=== PATIENT | female | born 1955 | race Caucasian/White ===

== ENCOUNTER 2016-06-22 15:00 | Outpatient (CLI) | payer BC, OTHER ==
--- NOTE | 2016-06-22 15:33 | DIAGNOSTIC IMAGING REPORT ---
PROCEDURE: XR LUMBAR SPINE 5 VIEWS INDICATION: BACK PAIN TECHNIQUE: Five views. COMPARISON: None. FINDINGS: There is spondylosis of five S1 with disc space narrowing and irregularity. There is a large of posterior osteophytic ridge at this level as well. IMPRESSION: 1. Severe spondylosis L5-S1 with a large posterior osteophytic ridge.
== END 2016-06-22 23:00 ==
LOC: XR SRH 15:00
DX: M47.817 Spondylosis without myelopathy or radiculopathy, lumbosacral region (principal)

== ENCOUNTER 2016-06-26 13:38 | Outpatient (CLI) | payer BC, OTHER ==
--- NOTE | 2016-06-26 21:06 | DIAGNOSTIC IMAGING REPORT ---
PROCEDURE: MR LUMBAR SPINE W/O CONTRAST; FAILED EXAM INDICATION: PAIN FINDINGS: The patient was extremely claustrophobic and unable to undergo the examination. IMPRESSION: 1. Failed exam.
--- NOTE | 2016-06-26 21:06 | DIAGNOSTIC IMAGING REPORT ---
PROCEDURE: MR LUMBAR SPINE W/O CONTRAST; FAILED EXAM INDICATION: PAIN FINDINGS: The patient was extremely claustrophobic and unable to undergo the examination. IMPRESSION: 1. Failed exam.
== END 2016-06-26 23:00 | disposition home or self-care (01) ==
LOC: MRI SRH 13:38
DX: M54.5 Low back pain (principal); Z53.8 Procedure and treatment not carried out for other reasons

== ENCOUNTER 2016-08-31 08:59 | Emergency (ER) | payer BC, OTHER ==
--- NOTE | 2016-08-31 12:02 | DIAGNOSTIC IMAGING REPORT ---
PROCEDURE: CT ABD/PELVIS WITH CONTRAST CLINICAL INDICATION: ABDOMINAL PAIN TECHNIQUE: 125 ml of Isovue 300 were injected intravenously and axial images were obtained of the entire abdomen and pelvis with sagittal and coronal reformations. COMPARISON: None. FINDINGS: ABDOMEN: Lung bases are clear. Heart size is normal. Hepatic steatosis. Cholecystectomy. Splenectomy with a few small splenules. Pancreas, adrenal glands and right kidney are normal. Small left renal cyst. Normal abdominal aorta. Nonspecific bowel gas pattern. Bilateral ventral wall infiltration air collection suggestive of injection sites. PELVIS: Normal appendix. Mild sigmoid diverticulosis. Uterine atrophy. Normal adnexa and bladder. No inflammatory changes or free fluid. Severe L5-S1 degenerative changes. IMPRESSION: 1. Hepatic steatosis 2. Cholecystectomy and splenectomy 3. Mild sigmoid diverticulosis 4. Bilateral antral injection sites 5. Results discussed with Dr. Block All CT scans at this facility use dose modulation, iterative reconstruction, and/or weight-based dosing when appropriate to reduce radiation dose to as low as reasonably achievable.
--- NOTE | 2016-08-31 13:27 | ED ORDER SUMMARY ---
..... Patient: MADIE ADAMS OrderSheet [facility] VisitID: [id number] [address] [place] [address] 61y, F Registration Date/Time: 08/31/2016 ORDER SHEET Weight: 92.0 kg (stated) Allergies: Avelox, Metal GENERAL ORDERS: UA-Culture if indicated Urgent (09:45 08/31/2016 Maksim Rivera) (Ack 9:48 KHoerner) (10:00 MWinterer R.N.) Cardiac Panel Stat (:08/31/2016 Maksim Rivera) (Ack 9:48 ELIDAoerner) (10:00 MWinterer R.N.) D-Dimer Urgent (:08/31/2016 Maksim Rivera) (Ack 9:48 ELIDAoerner) (10:00 MWinterer R.N.) Amylase Urgent (09:08/31/2016 Maksim Rivera) (Ack 9:48 ELIDAoerner) (10:00 MWinterer R.N.) Lipase Urgent (09:45 08/31/2016 Maksim Rivera) (Ack 9:48 ELIDAoerner) (10:00 MWinterer R.N.) EKG - ER Stat (09:45 08/31/2016 Maksim Rivera) (9:47 LNations ER Tech1) PT with INR Urgent (10:41 08/31/2016 Maksim Rivera) (10:43 KHoerner) PTT Urgent (10:41 08/31/2016 Maksim Rivera) (10:43 KHoerner) CT Abd/Pel w Cont (No) (10/0.9) Urgent (11:07 08/31/2016 Maksim Rivera) (Ack 11:11 ELIDAoerner) (11:41 Ferne R.N.) MEDICATION ORDERS: IV FLUIDS: IV NS : initial bolus none -, then 1000 mL/hr for X1 (NOW) (09:44 08/31/2016 Maksim Rivera) (Ack 10:00 MWinterer R.N.) (10:12 MWinterer R.N.) Zofran IV 4 mg (NOW) (09:45 08/31/2016 Maksim Rivera) (Ack 10:00 MWinterer R.N.) (10:12 MWinterer R.N.) Famotidine IV 20 mg/50mL (NOW) (10:13 08/31/2016 MWinterer R.N. verbal order read back to Maksim Rivera) (Ack 10:14 MWinterer R.N.) (10:19 MWinterer R.N.) Zofran IV 4 mg (NOW) (13:25 08/31/2016 Maksim Rivera) (Ack 13:27 JBoardley R.N.) (13:29 JBoardley R.N.) ORDER SHEET NOTES: [Electronically signed by Aiyana Sylvester R.N. (15:45 08/31/2016)] [Electronically signed by Shayan Block Dr. (21:44 08/31/2016)] [Electronically locked/signed by Aiyana Sylvester R.N. (15:45 08/31/2016)]
--- NOTE | 2016-08-31 13:27 | ED CLINICAL REPORT ---
Clinical Report - Physicians/Mid Levels [facility] [address] [place] [address] 08/31/2016 9:02 Patient: MADIE ADAMS Time Seen: 09:21; initial patient contact. Arrived- By private vehicle. Historian- patient. HISTORY OF PRESENT ILLNESS Chief Complaint: ABDOMINAL PAIN. At its maximum, severity described as moderate. When seen in the E.D., severity described as moderate. No radiation. It is described as located in the epigastric area. This started today and is still present. It was gradual in onset and has been constant. The patient has had nausea and vomiting. No loss of appetite or diarrhea. (Pt has a Cx Leukocytosis, in the 14k range, but will jump up to 19-20k.). Similar symptoms previously: None. Recent medical care: Not recently seen/assessed. REVIEW OF SYSTEMS No constipation, black stools, hematemesis, bloody stools or fever. No chest pain, difficulty breathing or chills. All systems otherwise negative, except as recorded above. PAST HISTORY Thyroid Disease. Hypertension. Herniated Disk. Back Pain. SURGERIES: . Hysterectomy. Splenectomy. Thyroid Surgery. SOCIAL HISTORY Never smoker. Occasional alcohol use. No drug use. ADDITIONAL NOTES The nursing notes have been reviewed. PHYSICAL EXAM Vital Signs: 08/31/2016 09:11 BP: 167/97. HR: 80. RR: 18. O2 saturation: 100%. Temp: 98 F. Pain level now: 7/10. Have been reviewed. Hypertensive. Heart rate normal. Respiratory rate normal. Temperature normal. Oxygen saturation normal. Appearance: Alert. Oriented X3. No acute distress. Eyes: Eyes normal inspection. No scleral icterus or pale conjunctivae. ENT: Pharynx normal. CVS: Normal heart rate and rhythm. Heart sounds normal. Respiratory: No respiratory distress. Breath sounds normal. Abdomen: Soft. Mild tenderness in the epigastric area. No guarding, rebound tenderness or Kaur's sign present. Bowel sounds normal. No organomegaly. No mass. Back: Normal inspection. No CVA tenderness. Rectal: Rectal exam normal and nontender. Stool heme negative; hemoccult quality control engineering technician check passed. (POC test reference range: negative). (Femal JOY Sylvester present for exam.). Skin: Skin warm and dry. Normal skin color. No rash. Extremities: No lower extremity edema. Neuro: Oriented X 3. LABS, X-RAYS, AND EKG EKG: EKG time: (0955). No acute process. No acute ischemia. Normal EKG. Normal sinus rhythm. Rate: 73. Normal P waves. Normal DOT. Normal QRS complex. Normal axis. Normal ST and T waves, QT and QTc. Prior EKG unavailable. The study has been interpreted contemporaneously by me. The study has been independently viewed by me. The EKG appears to be a good tracing. Interpretation time: 954. Abdominal CT: 1. Hepatic steatosis 2. Cholecystectomy and splenectomy 3. Mild sigmoid diverticulosis 4. Bilateral antral injection sites. Study type: abdomen and pelvis. Abdominal CT performed with IV contrast. The study was interpreted by the radiologist and discussed with the radiologist. Laboratory Tests: UA-Culture if indicated: (APRIL: 08/31/2016 09:30) ( MsgRcvd 08/31/2016 10:34) Final results Test Result Flag Units (Reference) URINE COLOR YELLOW URINE APPEARANCE CLEAR URINE GLUCOSE NEGATIVE (NEGATIVE) URINE BILIRUBIN 1+ (NEGATIVE) URINE BILIRUBIN ICTOTEST NEGATIVE (NEGATIVE) URINE KETONE TRACE (NEGATIVE) URINE SPECIFIC GRAVITY 1.020 (1.010-1.030) URINE PH 6.0 (5.0-8.0) URINE PROTEIN 1+ (NEGATIVE) URINE UROBILINOGEN 1.0 EU/dL (0.2-1.0) URINE NITRITE NEGATIVE (NEGATIVE) URINE BLOOD NEGATIVE (NEGATIVE) URINE LEUK ESTERASE NEGATIVE (NEGATIVE) URINE RBC 0-1 rbc/hpf (0-1) URINE WBC 0-1 wbc/hpf (0-1) URINE EPITHELIAL CELLS 1-3 EPI/hpf (0-5) URINE BACTERIA NONE SEEN (NONE SEEN) URINE COMMENT CULT NOT INDICATED URINE CULTURES ARE SET-UP BASED ON THE FOLLOWING CRITERIA:POSITIVE NITRITEPOSITIVE LEUKOCYTE ESTERASEGREATER THAN 10 WHITE BLOOD CELLSMODERATE (2+) OR GREATER BACTERIA CBC w Diff: (APRIL: 08/31/2016 09:30) ( MsgRcvd 08/31/2016 10:07) IP Test Result Flag Units (Reference) WHITE BLOOD COUNT 19.1 H K/uL (4.5-11.5) RED BLOOD COUNT 4.52 M/uL (4.00-5.20) HEMOGLOBIN 15.4 gm/dL (12.0-16.0) HEMATOCRIT 43.2 % (36.0-46.0) MEAN CELL VOLUME 95 fL (80-100) MEAN CORPUSCULAR HGB 34 pg (26-34) MEAN CORPUSCULAR HGB CONC 36 g/dL (31-37) RED CELL DISTRIBUTION WIDTH 14.2 % (11.6-14.8) NEUTROPHIL % 57.5 % (50-75) LYMPH % 31.2 % (25-40) MONO % 8.1 % (3-14) EOSINOPHIL % 1.1 % (0-4) BASOPHIL % 2.1 H % (0-2) [id number]: (APRIL: 08/31/2016 09:30) ( [facility] 08/31/2016 10:24) Final results Test Result Flag Units (Reference) D-DIMER QUANTITATIVE < 0.27 L ug/mLFEU (0.27-0.52) The primary value of this quantitative assay relates toits negative predictive value (i.e. exclusion) of pulmonaryembolism/deep vein thrombosis/DIC.Elevated levels of d-dimer may also occur with:, age, cancer, inflammation, liver disease,post-op, infection, hematoma, coronary disease, peripheralarteriopathy, bleeding disorders and thrombolytic treatment.Results should be correlated with other clinical andradiological data.Testing Methodology: Latex Immunoassay Lipase: (APRIL: 08/31/2016 09:45) ( [facility] 08/31/2016 10:19) Final results Test Result Flag Units (Reference) LIPASE 153 U/L (73-393) AMYLASE 38 U/L (25-115) CHEM 13 PANEL: (APRIL: 08/31/2016 09:30) ( [facility] 08/31/2016 10:18) Final results Test Result Flag Units (Reference) GLUCOSE 127 H mg/dL (70-110) BUN 10 mg/dL (7-18) CREATININE 0.9 mg/dL (0.6-1.3) Estimated GFR >60 mL/min Estimated GFR- >60 mL/min Note: Persistent reduction over 3 months in eGFR<60 mL/min/1.73 m2 defines CKD. Patients with eGFR values>=60 mL/min/1.73 m2 may also have CKD if evidence ofpersistent proteinuria. Additional information may be foundat [email or web address].org. SODIUM 139 mmol/L (136-145) POTASSIUM 3.7 mmol/L (3.5-5.1) CHLORIDE 101 mmol/L (98-107) CARBON DIOXIDE 23 mmol/L (21-32) CALCIUM 9.6 mg/dL (8.5-10.1) TOTAL PROTEIN 8.4 H g/dL (6.4-8.2) ALBUMIN 3.7 g/dL (3.3-5.0) BILIRUBIN, TOTAL 1.0 mg/dL (0.0-1.0) ALKALINE PHOSPHATASE 132 H U/L (46-116) AST (SGOT) 48 H U/L (15-37) ALT (SGPT) 67 U/L (12-78) CPK 43 U/L (24-260) MAGNESIUM 1.9 mg/dL (1.8-2.4) TROPONIN I <0.05 L ng/mL (0.00-1.5) TROPONIN REFERENCE RANGE:<0.1 NEGATIVE0.1-1.5 INDETERMINANT>1.5 POSITIVE . PROGRESS AND PROCEDURES Course of Care: Famotidine 20 mg IVP given. Physical exam findings are improved. Symptoms better. Disposition: Discharged home in good and improved condition. Condition: good. CLINICAL IMPRESSION Acute gastritis. No alcoholic gastritis or hemorrhagic gastritis. Mild leukocytosis. No bandemia. INSTRUCTIONS Your Current Medications: CONTINUE TAKING THE FOLLOWING MEDICATIONS: Ambien Oral. Citalopram Hydrobromide Oral. Folic Acid Oral. Hydrochlorothiazide Oral. Levothyroxine Sodium Oral. Ranitidine HCl Oral. Vitamin D Oral. Zofran Oral. Prescription Medications: Zofran (orally disintegrating tablets) 4 mg: take 1 orally every 6 hours. Dispense ten (10). No refill. Substitution is permissible. Zantac 150 mg: take 1 orally every 12 hours. Dispense sixty (60). No refills. Substitution is permissible. Protonix 40 mg tablets: take 1 tablet orally every day. Dispense twenty-eight (28). No refill. Substitution is permissible. Follow-up: Follow up with your doctor tomorrow. Call for an appointment. Follow up with doctor Call your surgeon today to determine if they want to proceed with surgery. Blood pressure screening was not performed during this visit because the patient has an active diagnosis of hypertension. (Electronically signed by Shayan Block Dr. 08/31/2016 21:44)
--- NOTE | 2016-08-31 13:27 | ED CLINICAL REPORT ---
Clinical Report - Physicians/Mid Levels [facility] [address] [place] [address] 08/31/2016 9:02 Patient: MADIE ADAMS Time Seen: 09:21; initial patient contact. Arrived- By private vehicle. Historian- patient. HISTORY OF PRESENT ILLNESS Chief Complaint: ABDOMINAL PAIN. At its maximum, severity described as moderate. When seen in the E.D., severity described as moderate. No radiation. It is described as located in the epigastric area. This started today and is still present. It was gradual in onset and has been constant. The patient has had nausea and vomiting. No loss of appetite or diarrhea. (Pt has a Cx Leukocytosis, in the 14k range, but will jump up to 19-20k.). Similar symptoms previously: None. Recent medical care: Not recently seen/assessed. REVIEW OF SYSTEMS No constipation, black stools, hematemesis, bloody stools or fever. No chest pain, difficulty breathing or chills. All systems otherwise negative, except as recorded above. PAST HISTORY Thyroid Disease. Hypertension. Herniated Disk. Back Pain. SURGERIES: . Hysterectomy. Splenectomy. Thyroid Surgery. SOCIAL HISTORY Never smoker. Occasional alcohol use. No drug use. ADDITIONAL NOTES The nursing notes have been reviewed. PHYSICAL EXAM Vital Signs: 08/31/2016 09:11 BP: 167/97. HR: 80. RR: 18. O2 saturation: 100%. Temp: 98 F. Pain level now: 7/10. Have been reviewed. Hypertensive. Heart rate normal. Respiratory rate normal. Temperature normal. Oxygen saturation normal. Appearance: Alert. Oriented X3. No acute distress. Eyes: Eyes normal inspection. No scleral icterus or pale conjunctivae. ENT: Pharynx normal. CVS: Normal heart rate and rhythm. Heart sounds normal. Respiratory: No respiratory distress. Breath sounds normal. Abdomen: Soft. Mild tenderness in the epigastric area. No guarding, rebound tenderness or Kaur's sign present. Bowel sounds normal. No organomegaly. No mass. Back: Normal inspection. No CVA tenderness. Rectal: Rectal exam normal and nontender. Stool heme negative; hemoccult director supplier quality check passed. (POC test reference range: negative). (Femal JOY Sylvester present for exam.). Skin: Skin warm and dry. Normal skin color. No rash. Extremities: No lower extremity edema. Neuro: Oriented X 3. LABS, X-RAYS, AND EKG EKG: EKG time: (0955). No acute process. No acute ischemia. Normal EKG. Normal sinus rhythm. Rate: 73. Normal P waves. Normal DOT. Normal QRS complex. Normal axis. Normal ST and T waves, QT and QTc. Prior EKG unavailable. The study has been interpreted contemporaneously by me. The study has been independently viewed by me. The EKG appears to be a good tracing. Interpretation time: 954. Abdominal CT: 1. Hepatic steatosis 2. Cholecystectomy and splenectomy 3. Mild sigmoid diverticulosis 4. Bilateral antral injection sites. Study type: abdomen and pelvis. Abdominal CT performed with IV contrast. The study was interpreted by the radiologist and discussed with the radiologist. Laboratory Tests: UA-Culture if indicated: (APRIL: 08/31/2016 09:30) ( MsgRcvd 08/31/2016 10:34) Final results Test Result Flag Units (Reference) URINE COLOR YELLOW URINE APPEARANCE CLEAR URINE GLUCOSE NEGATIVE (NEGATIVE) URINE BILIRUBIN 1+ (NEGATIVE) URINE BILIRUBIN ICTOTEST NEGATIVE (NEGATIVE) URINE KETONE TRACE (NEGATIVE) URINE SPECIFIC GRAVITY 1.020 (1.010-1.030) URINE PH 6.0 (5.0-8.0) URINE PROTEIN 1+ (NEGATIVE) URINE UROBILINOGEN 1.0 EU/dL (0.2-1.0) URINE NITRITE NEGATIVE (NEGATIVE) URINE BLOOD NEGATIVE (NEGATIVE) URINE LEUK ESTERASE NEGATIVE (NEGATIVE) URINE RBC 0-1 rbc/hpf (0-1) URINE WBC 0-1 wbc/hpf (0-1) URINE EPITHELIAL CELLS 1-3 EPI/hpf (0-5) URINE BACTERIA NONE SEEN (NONE SEEN) URINE COMMENT CULT NOT INDICATED URINE CULTURES ARE SET-UP BASED ON THE FOLLOWING CRITERIA:POSITIVE NITRITEPOSITIVE LEUKOCYTE ESTERASEGREATER THAN 10 WHITE BLOOD CELLSMODERATE (2+) OR GREATER BACTERIA CBC w Diff: (APRIL: 08/31/2016 09:30) ( MsgRcvd 08/31/2016 10:07) IP Test Result Flag Units (Reference) WHITE BLOOD COUNT 19.1 H K/uL (4.5-11.5) RED BLOOD COUNT 4.52 M/uL (4.00-5.20) HEMOGLOBIN 15.4 gm/dL (12.0-16.0) HEMATOCRIT 43.2 % (36.0-46.0) MEAN CELL VOLUME 95 fL (80-100) MEAN CORPUSCULAR HGB 34 pg (26-34) MEAN CORPUSCULAR HGB CONC 36 g/dL (31-37) RED CELL DISTRIBUTION WIDTH 14.2 % (11.6-14.8) NEUTROPHIL % 57.5 % (50-75) LYMPH % 31.2 % (25-40) MONO % 8.1 % (3-14) EOSINOPHIL % 1.1 % (0-4) BASOPHIL % 2.1 H % (0-2) [id number]: (APRIL: 08/31/2016 09:30) ( [facility] 08/31/2016 10:24) Final results Test Result Flag Units (Reference) D-DIMER QUANTITATIVE < 0.27 L ug/mLFEU (0.27-0.52) The primary value of this quantitative assay relates toits negative predictive value (i.e. exclusion) of pulmonaryembolism/deep vein thrombosis/DIC.Elevated levels of d-dimer may also occur with:, age, cancer, inflammation, liver disease,post-op, infection, hematoma, coronary disease, peripheralarteriopathy, bleeding disorders and thrombolytic treatment.Results should be correlated with other clinical andradiological data.Testing Methodology: Latex Immunoassay Lipase: (APRIL: 08/31/2016 09:45) ( [facility] 08/31/2016 10:19) Final results Test Result Flag Units (Reference) LIPASE 153 U/L (73-393) AMYLASE 38 U/L (25-115) CHEM 13 PANEL: (APRIL: 08/31/2016 09:30) ( [facility] 08/31/2016 10:18) Final results Test Result Flag Units (Reference) GLUCOSE 127 H mg/dL (70-110) BUN 10 mg/dL (7-18) CREATININE 0.9 mg/dL (0.6-1.3) Estimated GFR >60 mL/min Estimated GFR- >60 mL/min Note: Persistent reduction over 3 months in eGFR<60 mL/min/1.73 m2 defines CKD. Patients with eGFR values>=60 mL/min/1.73 m2 may also have CKD if evidence ofpersistent proteinuria. Additional information may be foundat [email or web address].org. SODIUM 139 mmol/L (136-145) POTASSIUM 3.7 mmol/L (3.5-5.1) CHLORIDE 101 mmol/L (98-107) CARBON DIOXIDE 23 mmol/L (21-32) CALCIUM 9.6 mg/dL (8.5-10.1) TOTAL PROTEIN 8.4 H g/dL (6.4-8.2) ALBUMIN 3.7 g/dL (3.3-5.0) BILIRUBIN, TOTAL 1.0 mg/dL (0.0-1.0) ALKALINE PHOSPHATASE 132 H U/L (46-116) AST (SGOT) 48 H U/L (15-37) ALT (SGPT) 67 U/L (12-78) CPK 43 U/L (24-260) MAGNESIUM 1.9 mg/dL (1.8-2.4) TROPONIN I <0.05 L ng/mL (0.00-1.5) TROPONIN REFERENCE RANGE:<0.1 NEGATIVE0.1-1.5 INDETERMINANT>1.5 POSITIVE . PROGRESS AND PROCEDURES Course of Care: Famotidine 20 mg IVP given. Physical exam findings are improved. Symptoms better. Disposition: Discharged home in good and improved condition. Condition: good. CLINICAL IMPRESSION Acute gastritis. No alcoholic gastritis or hemorrhagic gastritis. Mild leukocytosis. No bandemia. INSTRUCTIONS Your Current Medications: CONTINUE TAKING THE FOLLOWING MEDICATIONS: Ambien Oral. Citalopram Hydrobromide Oral. Folic Acid Oral. Hydrochlorothiazide Oral. Levothyroxine Sodium Oral. Ranitidine HCl Oral. Vitamin D Oral. Zofran Oral. Prescription Medications: Zofran (orally disintegrating tablets) 4 mg: take 1 orally every 6 hours. Dispense ten (10). No refill. Substitution is permissible. Zantac 150 mg: take 1 orally every 12 hours. Dispense sixty (60). No refills. Substitution is permissible. Protonix 40 mg tablets: take 1 tablet orally every day. Dispense twenty-eight (28). No refill. Substitution is permissible. Follow-up: Follow up with your doctor tomorrow. Call for an appointment. Follow up with doctor Call your surgeon today to determine if they want to proceed with surgery. Blood pressure screening was not performed during this visit because the patient has an active diagnosis of hypertension. (Electronically signed by Shayan Block Dr. 08/31/2016 21:44)
--- NOTE | 2016-08-31 13:27 | ED ORDER SUMMARY ---
..... Patient: MADIE ADAMS OrderSheet [facility] VisitID: [id number] [address] [place] [address] 61y, F Registration Date/Time: 08/31/2016 ORDER SHEET Weight: 92.0 kg (stated) Allergies: Avelox, Metal GENERAL ORDERS: UA-Culture if indicated Urgent (09:45 08/31/2016 Maksim Rivera) (Ack 9:48 KHoerner) (10:00 MWinterer R.N.) Cardiac Panel Stat (:08/31/2016 Maksim Rivera) (Ack 9:48 ELIDAoerner) (10:00 MWinterer R.N.) D-Dimer Urgent (:08/31/2016 Maksim Rivera) (Ack 9:48 ELIDAoerner) (10:00 MWinterer R.N.) Amylase Urgent (09:08/31/2016 Maksim Rivera) (Ack 9:48 ELIDAoerner) (10:00 MWinterer R.N.) Lipase Urgent (09:45 08/31/2016 Maksim Rivera) (Ack 9:48 ELIDAoerner) (10:00 MWinterer R.N.) EKG - ER Stat (09:45 08/31/2016 Maksim Rivera) (9:47 LNations ER Tech1) PT with INR Urgent (10:41 08/31/2016 Maksim Rivera) (10:43 KHoerner) PTT Urgent (10:41 08/31/2016 Maksim Rivera) (10:43 KHoerner) CT Abd/Pel w Cont (No) (10/0.9) Urgent (11:07 08/31/2016 Maksim Rivera) (Ack 11:11 ELIDAoerner) (11:41 Ferne R.N.) MEDICATION ORDERS: IV FLUIDS: IV NS : initial bolus none -, then 1000 mL/hr for X1 (NOW) (09:44 08/31/2016 Maksim Rivera) (Ack 10:00 MWinterer R.N.) (10:12 MWinterer R.N.) Zofran IV 4 mg (NOW) (09:45 08/31/2016 Maksim Rivera) (Ack 10:00 MWinterer R.N.) (10:12 MWinterer R.N.) Famotidine IV 20 mg/50mL (NOW) (10:13 08/31/2016 MWinterer R.N. verbal order read back to Maksim Rivera) (Ack 10:14 MWinterer R.N.) (10:19 MWinterer R.N.) Zofran IV 4 mg (NOW) (13:25 08/31/2016 Maksim Rivera) (Ack 13:27 JBoardley R.N.) (13:29 JBoardley R.N.) ORDER SHEET NOTES: [Electronically signed by Aiyana Sylvester R.N. (15:45 08/31/2016)] [Electronically signed by Shayan Block Dr. (21:44 08/31/2016)] [Electronically locked/signed by Aiyana Sylvester R.N. (15:45 08/31/2016)]
--- NOTE | 2016-08-31 13:27 | ED NURSING NOTES ---
Clinical Report - Nurses [facility] [address] [place] [address] 08/31/2016 9:02 Patient: MADIE ADAMS TRIAGE Acuity: LEVEL 3. Chief Complaint: ABDOMINAL PAIN and VOMITING. Alert. No acute distress. SEPSIS SCREEN: Sepsis Screen. Negative (no infection suspected/documented). --09:22 Aiyana Sylvester R.N. 09:11 08/31/16. BP: 167/97. HR: 80. RR: 18. O2 saturation: 100%. Temp: 98 F (oral). Pain level now: 11/15. --09:22 Aiyana Sylvester R.N. Weight: 92 kg stated. Height/Length: 65 inches Per Patient. BMI: 33.8. --09:22 Aiyana Sylvester R.N. Medications Levothyroxine Sodium Oral. --09:14 Aiyana Sylvester R.N. Hydrochlorothiazide Oral. --09:14 Aiyana Sylvester R.N. Folic Acid Oral. --09:14 Aiyana Sylvester R.N. Citalopram Hydrobromide Oral. --09:15 Aiyana Sylvester R.N. Ambien Oral. --09:15 Aiyana Sylvester R.N. Ranitidine HCl Oral. --09:15 Aiyana Sylvester R.N. Vitamin D Oral. --09:15 Aiyana Sylvester R.N. Zofran Oral. --09:16 Aiyana Sylvester R.N. Medication/allergy information source: the patient. --09:22 Aiyana Sylvester R.N. Allergies Avelox. --09:16 Aiyana Sylvester R.N. Metal. --09:16 Aiyana Sylvester R.N. History Arrived by private vehicle. Historian: patient. Accompanied by spouse. Primary physician (Dale). Onset. (4 days ago). ( Pt reports she is having back surgery tomorrow and her Doctor took her off coumadin 9 days ago and she started enoxaparin injections 4 days ago and has felt sick since.). Treatment [employer]IAN: None. PAST MEDICAL HX: The patient has had a hysterectomy. SOCIAL HX: Never smoker. Occasional alcohol use. No drug use. FALL RISK ASSESSMENT: Fall risk assessment completed. No fall risk identified. NUTRITIONAL RISK ASSESSMENT: The nutritional risk assessment revealed no deficiencies. FUNCTIONAL ASSESSMENT: Functional assessment: no impairments noted. LEARNING NEEDS ASSESSMENT: The learning needs assessment revealed no barriers. SKIN INTEGRITY ASSESSMENT: Skin integrity risk assessment completed. No skin integrity risk identified. --09: Aiyana Sylvester R.N. PROBLEMS: Thyroid Disease. Hypertension. Herniated Disk. Back Pain. --: Aiyana Sylvester R.N. ADDITIONAL SURGERIES: . Hysterectomy. Splenectomy. Thyroid Surgery. --: Aiyana Sylvester R.N. Assessment GENERAL / NEURO / PSYCH: Alert. Oriented X 4. Appears in no acute distress. Patient appears calm and cooperative. RESPIRATORY: Respirations not labored. CVS: Capillary refill less than 2 seconds. GI / : Abdomen soft and nontender. SKIN: Mucous membranes are pink. Skin is warm and dry. --: Aiyana Sylvester R.N. Interventions ID band on patient. To treatment room. --: Aiyana Sylvester R.N. PHYSICAL ASSESSMENT 09:08/31/16. To room via wheelchair. GENERAL / NEURO / PSYCH: Alert. Oriented X 4. Appears in no acute distress. HEENT: Mucous membranes are pink. RESPIRATORY: Respirations not labored. CVS: Capillary refill less than 2 seconds. GI / : Abdomen soft and nontender. SKIN: Skin is warm and dry. --09:22 Aiyana Sylvester R.N. NURSING PROGRESS NOTES 09:12 08/31/2016 Site #1 started via IV in the left antecubital space with an 20g angiocath, with aseptic technique and good blood return; one attempt. Blood drawn: rainbow set. Labeled in the presence of the patient and sent to the lab. Saline lock flushed with 10 mL saline. --10:12 Aiyana Sylvester R.N. 09:08/31/16. Patient gowned. Two patient identifiers checked. Call light placed in reach. Side rails up x 1. Bed placed in lowest position. Brakes of bed on. Patient ready for evaluation- chart flagged and ED physician notified. --09:22 Aiyana Sylvester R.N. EKG time: (954). EKG was ordered, performed by a tech and shown to the ED physician. --09:55 Latanya Best, ANTHONY Tech1 10:02 08/31/2016 Zofran (Ondansetron HCl) IVP 4 mg given over 1 minute(s) via site #1. Allergies verified and confirmed 5 rights. IV patency established. IV site checked: no pain, redness, or swelling. IV flushed thoroughly pre- and post-medication administration. IVP given by RN. --10:12 Aiyana Sylvester R.N. 10:12 08/31/2016 Started bag #1 1000 mL IV Fluids IV NS (Saline); at 1000 mL/hr over 1 hour(s) via site #1. Allergies verified and confirmed 5 rights. IV patency established. IV site checked: no pain, redness, or swelling. IV flushed thoroughly pre- and post-medication administration. --10:12 Aiyana Sylvester R.N. 10:19 08/31/2016 Started 20 mg of Famotidine IVPB in bag #1 50 mL; at 150 mL/hr over 30 minute(s) via site #1 via IV pump. Allergies verified and confirmed 5 rights. IV patency established. IV site checked: no pain, redness, or swelling. IV flushed thoroughly pre- and post-medication administration. --10:19 Aiyana Sylvester R.N. 11:06 08/31/2016 Famotidine IVPB Discontinued. Total amount infused: 50 mL. IV patency established. IV site checked: no pain, redness, or swelling. IV flushed thoroughly. --11:31 Rock Salazar R.N. 12:17 08/31/16. BP: 146/81. HR: 75. RR: 18. O2 saturation: 99% on room air. Temp: 98.5 F (oral). --12:18 Aiyana Sylvester R.N. 11:30 08/31/2016 IV Fluids IV NS Discontinued: bag #1 infused. Total amount infused: 1000 mL. IV patency established. IV site checked: no pain, redness, or swelling. IV flushed thoroughly. --12:44 Aiyana Sylvester R.N. 12:20 08/31/16. Reassessment after fluids administered and medication administered. She is calm and resting quietly. Overall patient status- she states feels the same. --12:20 Aiyana Sylvester R.N. 13:29 08/31/2016 Zofran (Ondansetron HCl) IVP 4 mg given over 2 minute(s) via site #1. Allergies verified and confirmed 5 rights. IV patency established. IV site checked: no pain, redness, or swelling. IV flushed thoroughly pre- and post-medication administration. IVP given by RN. --13:29 Rock Salazar R.N. DISPOSITION / DISCHARGE Departure time: 13:45 Aug 31 2016. Condition at departure: improved and stable. No learning barriers present. Reviewed medication(s) side effects, precautions and dosing information. Prescription(s) given to the patient. Patient verbalized understanding. Written instructions provided in Wolof. The patient was discharged by the physician. She was discharged home and accompanied by spouse. She left the Emergency Department ambulatory and via private vehicle. Spouse driving. --15:43 Aiyana Sylvester R.N. 15:42 08/31/16. BP: 138/76. HR: 76. RR: 18. O2 saturation: 100%. Temp: 98.6 F (oral). Pain level now: 08/16. --15:43 Aiyana Sylvester R.N. 13:44 08/31/2016 Site #1 removed upon discharge. Catheter intact. Manual pressure and bandage applied. --15:44 Aiyana Sylvester R.N. Locked/Released at 08/31/2016 15:45 by Aiyana Sylvester R.N.
--- NOTE | 2016-08-31 21:44 | ED MAR SUMMARY ---
..... Medication Administration Record [facility] [address] [place] [address] Patient: MADIE AADMS Visit ID: [id number] 61y, F Weight: 92.0 kg Height/Length: 65 in BMI: 33.8 ALLERGIES: Metal, Avelox Given 10:02 08/31/2016 Aiyana Sylvester R.N. Medication Administered: ZOFRAN [IVP] (ONDANSETRON HCL), Dose: 4 mg IVP over 1 minute(s), Site: #1 left AC. Medication Ordered: Zofran IV 4 mg (NOW). Start 10:12 08/31/2016 Aiyana Sylvester R.N., Stop 11:30 08/31/2016 Aiyana Sylvester R.N. Medication Administered: IV NS (SALINE), Dose: IV Fluids over 1 hour(s), Rate: 1000 mL/hr, Dispensed: 1000 mL bag, Site: #1 left AC. Medication Ordered: IV NS : initial bolus none -, then 1000 mL/hr for X1 (NOW). Start 10:19 08/31/2016 Aiyana Sylvester R.N., Stop 11:06 08/31/2016 Rock Salazar R.N. Medication Administered: FAMOTIDINE [IVPB], Dose: 20 mg IVPB over 30 minute(s), Rate: 150 mL/hr, Dispensed: 50 mL bag, Site: #1 left AC. Medication Ordered: Famotidine IV 20 mg/50mL (NOW). Given 13:29 08/31/2016 Rock Salazar R.N. Medication Administered: ZOFRAN [IVP] (ONDANSETRON HCL), Dose: 4 mg IVP over 2 minute(s), Site: #1 left AC. Medication Ordered: Zofran IV 4 mg (NOW).
--- NOTE | 2016-08-31 21:44 | ED MED RECONCILIATION SUMMARY ---
Patient: MADIE ADAMS Medication Reconciliation Report [facility] VisitID: [id number] [address] [place] [address] 61y, F Registration Date/Time: 08/31/2016 Weight: 92.0 kg Height/Length: 65 in. BMI: 33.8 ALLERGIES: Avelox, Metal The patient's Home Medications are listed below: CONTINUE TAKING THE FOLLOWING MEDICATIONS: Ambien Oral Citalopram Hydrobromide Oral Folic Acid Oral Hydrochlorothiazide Oral Levothyroxine Sodium Oral Ranitidine HCl Oral Vitamin D Oral Zofran Oral The source(s) of the original Home Medication information: patient The following Medications were given to the patient in the Emergency Department: IV NS IV Fluids bolus 0, then 1000 mL/hr, administered: 08/31/2016 10:12:00 AM Zofran [IVP] IVP 4 mg, administered: 08/31/2016 10:02:00 AM Famotidine [IVPB] IVPB bolus 0, then 20 mg 150 mL/hr, administered: 08/31/2016 10:19:00 AM Zofran [IVP] IVP 4 mg, administered: 08/31/2016 1:29:00 PM The following Medications were prescribed to the patient: Zofran (orally disintegrating tablets) 4 mg: take 1 orally every 6 hours. Dispense ten (10). No refill. Substitution is permissible. -- Shayan Block Dr. Zantac 150 mg: take 1 orally every 12 hours. Dispense sixty (60). No refills. Substitution is permissible. -- Shayan Block Dr. Protonix 40 mg tablets: take 1 tablet orally every day. Dispense twenty-eight (28). No refill. Substitution is permissible. -- Shayan Block Dr.
--- NOTE | 2016-08-31 21:44 | ED MAR SUMMARY ---
..... Medication Administration Record [facility] [address] [place] [place] [address] Patient: MADIE ADAMS Visit ID: [id number] 61y, F Weight: 92.0 kg Height/Length: 65 in BMI: 33.8 ALLERGIES: Metal, Avelox Given 10:02 08/31/2016 Aiyana Sylvester R.N. Medication Administered: ZOFRAN [IVP] (ONDANSETRON HCL), Dose: 4 mg IVP over 1 minute(s), Site: #1 left AC. Medication Ordered: Zofran IV 4 mg (NOW). Start 10:12 08/31/2016 Aiyana Sylvester R.N., Stop 11:30 08/31/2016 Aiyana Sylvester R.N. Medication Administered: IV NS (SALINE), Dose: IV Fluids over 1 hour(s), Rate: 1000 mL/hr, Dispensed: 1000 mL bag, Site: #1 left AC. Medication Ordered: IV NS : initial bolus none -, then 1000 mL/hr for X1 (NOW). Start 10:19 08/31/2016 Aiyana Sylvester R.N., Stop 11:06 08/31/2016 Rock Salazar R.N. Medication Administered: FAMOTIDINE [IVPB], Dose: 20 mg IVPB over 30 minute(s), Rate: 150 mL/hr, Dispensed: 50 mL bag, Site: #1 left AC. Medication Ordered: Famotidine IV 20 mg/50mL (NOW). Given 13:29 08/31/2016 Rock Salazar R.N. Medication Administered: ZOFRAN [IVP] (ONDANSETRON HCL), Dose: 4 mg IVP over 2 minute(s), Site: #1 left AC. Medication Ordered: Zofran IV 4 mg (NOW).
--- NOTE | 2016-08-31 21:44 | ED MED RECONCILIATION SUMMARY ---
Patient: MADIE ADAMS Medication Reconciliation Report [facility] VisitID: [id number] [address] [place] [address] 61y, F Registration Date/Time: 08/31/2016 Weight: 92.0 kg Height/Length: 65 in. BMI: 33.8 ALLERGIES: Avelox, Metal The patient's Home Medications are listed below: CONTINUE TAKING THE FOLLOWING MEDICATIONS: Ambien Oral Citalopram Hydrobromide Oral Folic Acid Oral Hydrochlorothiazide Oral Levothyroxine Sodium Oral Ranitidine HCl Oral Vitamin D Oral Zofran Oral The source(s) of the original Home Medication information: patient The following Medications were given to the patient in the Emergency Department: IV NS IV Fluids bolus 0, then 1000 mL/hr, administered: 08/31/2016 10:12:00 AM Zofran [IVP] IVP 4 mg, administered: 08/31/2016 10:02:00 AM Famotidine [IVPB] IVPB bolus 0, then 20 mg 150 mL/hr, administered: 08/31/2016 10:19:00 AM Zofran [IVP] IVP 4 mg, administered: 08/31/2016 1:29:00 PM The following Medications were prescribed to the patient: Zofran (orally disintegrating tablets) 4 mg: take 1 orally every 6 hours. Dispense ten (10). No refill. Substitution is permissible. -- Shayan Block Dr. Zantac 150 mg: take 1 orally every 12 hours. Dispense sixty (60). No refills. Substitution is permissible. -- Shayan Block Dr. Protonix 40 mg tablets: take 1 tablet orally every day. Dispense twenty-eight (28). No refill. Substitution is permissible. -- Shayan Block Dr.
--- NOTE | 2016-08-31 21:44 | ED DISCHARGE INSTRUCTIONS ---
Patient: MADIE ADAMS General Instructions [facility] VisitID: [id number] [address] [place] [address] 61y, F Registration Date/Time: 08/31/2016 Acute gastritis. No alcoholic gastritis or hemorrhagic gastritis. Mild leukocytosis. No bandemia. INSTRUCTIONS Your Current Medications: CONTINUE TAKING THE FOLLOWING MEDICATIONS: Ambien Oral. Citalopram Hydrobromide Oral. Folic Acid Oral. Hydrochlorothiazide Oral. Levothyroxine Sodium Oral. Ranitidine HCl Oral. Vitamin D Oral. Zofran Oral. Prescription Medications: Zofran (orally disintegrating tablets) 4 mg: take 1 orally every 6 hours. Dispense ten (10). No refill. Substitution is permissible. Zantac 150 mg: take 1 orally every 12 hours. Dispense sixty (60). No refills. Substitution is permissible. Protonix 40 mg tablets: take 1 tablet orally every day. Dispense twenty-eight (28). No refill. Substitution is permissible. Follow-up: Follow up with your doctor tomorrow. Call for an appointment. Follow up with doctor Call your surgeon today to determine if they want to proceed with surgery. Blood pressure screening was not performed during this visit because the patient has an active diagnosis of hypertension. ADDITIONAL INFORMATION Gastritis Versus Ulcer (No Antibiotic Tx) The symptoms of gastritis and peptic ulcer are very similar. Both can cause a dull ache or burning pain in the upper abdomen. Other symptoms include nausea, vomiting, loss of appetite, and belching or bloating. Blood in the vomit or stools (red or black) is a sign of bleeding in the stomach. This requires immediate medical attention. A Peptic Ulcer is an open sore in the lining of the stomach or duodenum (upper intestine). The most common cause of peptic ulcer disease is a bacterial infection (H pylori) in the stomach. Another common cause is taking anti-inflammatory medications (such as ibuprofen, prednisone, and aspirin). Gastritis is an irritation of the stomach lining. It can be acute (recent) or chronic (lasting a long time). Gastritis can be caused by overuse of alcohol or anti-inflammatory medications (such as aspirin, ibuprofen, prednisone). H pyloriinfection can also cause chronic gastritis. Tests for H pyloriare used to screen for bacterial infection. If no infection is found, ulcer and gastritis can be treated by stopping the cause, such as anti-inflammatory medications, alcohol, caffeine, and tobacco, and treating with antacids plus an acid belle medication. If H pylori infection is found, antibiotics will be prescribed along with an acid belle. Persons 55 years and older may undergo other tests before treatment is started. Two common tests are used to evaluate your symptoms. An upper GI series is an x-ray taken after you drink a chalky liquid called barium. This coats the stomach and allows an ulcer to show up on the x-ray. Another test is called endoscopy during which a long thin tube called an endoscope is passed down your throat to the stomach. A camera at the end of the scope allows the doctor to view inside the stomach to check the cause of your symptoms. Home Care: Take the prescribed acid belle medication for the full course of treatment even if you begin to feel better sooner. This medication can take up to several days to fully control your symptoms. If you cant afford the prescribed medication, you can try [id number]-cwo-[id number] acid blockers, such as Pepcid AC, Tagamet, Zantac, or Aciphex. If these do not relieve your symptoms, a stronger acid-belle can be tried, such as Prilosec OTC. If you have been prescribed an antibiotic to treat H pyloriinfection, finish the full course of medication. Do so even if you begin to feel better sooner. If you stop the medication too soon, the infection can return and be harder to treat. You can use antacids, such as Tums, Rolaids, Mylanta, or Maalox, for pain. This will be useful the first few days after starting acid blockers when the blockers havent started working yet. Follow the directions on the label. Liquid antacids may work better than tablets. Note that antacids can interfere with absorption of certain medications. Specifically, do not take Tagamet (cimetidine), Zantac (ranitidine), or Carafate (sucralfate) within 1 hour of taking an antacid. Talk with your pharmacist if you have any questions. Although foods do not cause an ulcer, symptoms can be worsened by certain foods. Limit or avoid fatty, fried, and spicy foods, as well as coffee, chocolate, mint, and foods with high acid content such as tomatoes and citrus fruit and juices (orange, grapefruit, lemon). Avoid alcohol, caffeine, and tobacco, which can delay healing. Avoid aspirin and anti-inflammatory medications such as ibuprofen (Advil, Motrin) and naproxen (Naprosyn, Aleve). Acetaminophen (Tylenol) is safe to use. Do not take more than the amount listed on the label. Follow Up with your doctor or as advised. Further testing may be needed. If you do not begin to improve over the next 4 days, contact your doctor. If you had tests, youll be notified of any new findings that affect your care. Get Prompt Medical Attention if any of the following occur: Stomach pain gets worse or moves to the lower right abdomen (appendix area) Chest pain appears or gets worse, or spreads to the back, neck, shoulder, or arm Frequent vomiting (cant keep down liquids) Blood in the stool or vomit (red or black in color) Feeling weak or dizzy, fainting, or trouble breathing Fever of 100.4F (38C) or higher, or as directed by your healthcare provider Ondansetron Oral disintegrating tablet What is this medicine? ONDANSETRON (on FERNANDA se jasmin) is used to treat nausea and vomiting caused by chemotherapy. It is also used to prevent or treat nausea and vomiting after surgery. How should I use this medicine? These tablets are made to dissolve in the mouth. Do not try to push the tablet through the foil backing. With dry hands, peel away the foil backing and gently remove the tablet. Place the tablet in the mouth and allow it to dissolve, then swallow. While you may take these tablets with water, it is not necessary to do so. Talk to your pre wave assembler regarding the use of this medicine in children. Special care may be needed. What side effects may I notice from receiving this medicine? Side effects that you should report to your doctor or health child care giver as soon as possible: allergic reactions like skin rash, itching or hives, swelling of the face, lips, or tongue breathing problems dizziness fast or irregular heartbeat feeling faint or lightheaded, falls fever and chills swelling of the hands and feet tightness in the chest Side effects that usually do not require medical attention (report to your doctor or health child care giver if they continue or are bothersome): constipation or diarrhea headache What may interact with this medicine? Do not take this medicine with any of the following medications: -apomorphine -cisapride -dofetilide -dronedarone -pimozide -thioridazine -ziprasidone This medicine may also interact with the following medications: -carbamazepine -phenytoin -rifampicin -tramadol -other medicines that prolong the QT interval (cause an abnormal heart rhythm) What if I miss a dose? If you miss a dose, take it as soon as you can. If it is almost time for your next dose, take only that dose. Do not take double or extra doses. Where should I keep my medicine? Keep out of the reach of children. Store between 2 and 30 degrees C (36 and 86 degrees F). Throw away any unused medicine after the expiration date. What should I tell my health care provider before I take this medicine? They need to know if you have any of these conditions: heart disease history of irregular heartbeat liver disease low levels of magnesium or potassium in the blood an unusual or allergic reaction to ondansetron, granisetron, other medicines, foods, dyes, or preservatives or trying to get breast-feeding What should I watch for while using this medicine? Check with your doctor or health child care giver as soon as you can if you have any sign of an allergic reaction. Ranitidine Hydrochloride Oral tablet What is this medicine? RANITIDINE (ra BRANDON simpson) is a type of antihistamine that blocks the release of stomach acid. It is used to treat stomach or intestinal ulcers. It can relieve ulcer pain and discomfort, and the heartburn from acid reflux. How should I use this medicine? Take this medicine by mouth with a glass of water. Follow the directions on the prescription label. If you only take this medicine once a day, take it at bedtime. Take your medicine at regular intervals. Do not take your medicine more often than directed. Do not stop taking except on your doctor's advice. Talk to your pre wave assembler regarding the use of this medicine in children. Special care may be needed. What side effects may I notice from receiving this medicine? Side effects that you should report to your doctor or health child care giver as soon as possible: agitation, nervousness, depression, hallucinations allergic reactions like skin rash, itching or hives, swelling of the face, lips, or tongue breast enlargement in both males and females breathing problems redness, blistering, peeling or loosening of the skin, including inside the mouth unusual bleeding or bruising unusually weak or tired vomiting yellowing of the skin or eyes Side effects that usually do not require medical attention (report to your doctor or health child care giver if they continue or are bothersome): constipation or diarrhea dizziness headache nausea What may interact with this medicine? atazanavir delavirdine gefitinib glipizide ketoconazole midazolam procainamide propantheline triazolam warfarin What if I miss a dose? If you miss a dose, take it as soon as you can. If it is almost time for your next dose, take only that dose. Do not take double or extra doses. Where should I keep my medicine? Keep out of the reach of children. Store at room temperature between 15 and 30 degrees C (59 and 86 degrees F). Protect from light and moisture. Keep container tightly closed. Throw away any unused medicine after the expiration date. What should I tell my health care provider before I take this medicine? They need to know if you have any of these conditions: kidney disease liver disease porphyria an unusual or allergic reaction to ranitidine, other medicines, foods, dyes, or preservatives or trying to get breast-feeding What should I watch for while using this medicine? Tell your doctor or health child care giver if your condition does not start to get better or gets worse. You may need to take this medicine for several days as prescribed before your symptoms get better. Finish the full course of tablets prescribed, even if you feel better. Do not smoke cigarettes or drink alcohol. These increase irritation in your stomach and can lengthen the time it will take for ulcers to heal. Cigarettes and alcohol can also make acid reflux or heartburn worse. If you get black, tarry stools or vomit up what looks like coffee grounds, call your doctor or health child care giver at once. You may have a bleeding ulcer. Pantoprazole Sodium Gastro-resistant tablet What is this medicine? PANTOPRAZOLE (guido TOE pra zole) prevents the production of acid in the stomach. It is used to treat gastroesophageal reflux disease (GERD), inflammation of the esophagus, and Drake-Molina syndrome. How should I use this medicine? Take this medicine by mouth. Swallow the tablets whole with a drink of water. Follow the directions on the prescription label. Do not crush, break, or chew. Take your medicine at regular intervals. Do not take your medicine more often than directed. Talk to your pre wave assembler regarding the use of this medicine in children. While this drug may be prescribed for children as young as 5 years for selected conditions, precautions do apply. What side effects may I notice from receiving this medicine? Side effects that you should report to your doctor or health child care giver as soon as possible: allergic reactions like skin rash, itching or hives, swelling of the face, lips, or tongue bone, muscle or joint pain breathing problems chest pain or chest tightness dark yellow or brown urine dizziness fast, irregular heartbeat feeling faint or lightheaded fever or sore throat muscle spasm palpitations redness, blistering, peeling or loosening of the skin, including inside the mouth seizures tremors unusual bleeding or bruising unusually weak or tired yellowing of the eyes or skin Side effects that usually do not require medical attention (Report these to your doctor or health child care giver if they continue or are bothersome.): constipation diarrhea dry mouth headache nausea What may interact with this medicine? Do not take this medicine with any of the following medications: atazanavir nelfinavir This medicine may also interact with the following medications: ampicillin delavirdine digoxin diuretics iron salts medicines for fungal infections like ketoconazole, itraconazole and voriconazole warfarin What if I miss a dose? If you miss a dose, take it as soon as you can. If it is almost time for your next dose, take only that dose. Do not take double or extra doses. Where should I keep my medicine? Keep out of the reach of children. Store at room temperature between 15 and 30 degrees C (59 and 86 degrees F). Protect from light and moisture. Throw away any unused medicine after the expiration date. What should I tell my health care provider before I take this medicine? They need to know if you have any of these conditions: liver disease low levels of magnesium in the blood an unusual or allergic reaction to omeprazole, lansoprazole, pantoprazole, rabeprazole, other medicines, foods, dyes, or preservatives or trying to get breast-feeding What should I watch for while using this medicine? It can take several days before your stomach pain gets better. Check with your doctor or health child care giver if your condition does not start to get better, or if it gets worse. You may need blood work done while you are taking this medicine. You have been given the following additional information: Gastritis Vs. Ulcer Ondansetron Oral disintegrating tablet Ranitidine Hydrochloride Oral tablet Pantoprazole Sodium Gastro-resistant tablet (Electronically signed by Shayan Block Dr. 08/31/2016 21:44)
== END 2016-08-31 13:45 | disposition home or self-care (01) ==
LOC: ED SRH 08:59
DX: K29.00 Acute gastritis without bleeding (principal); D72.829 Elevated white blood cell count, unspecified; I10 Essential (primary) hypertension; Z79.899 Other long term (current) drug therapy
CPT/HCPCS: 90004; 90100; 90616; 91556; 92235; 92530; 92610; 92720; 94001; 94060; 95059